=== PATIENT | female | born 1945 | race Caucasian/White ===

== ENCOUNTER 2016-04-30 21:08 | Emergency (ER) | payer OTHER ==
--- NOTE | 2016-04-30 21:17 | UCPHY ---
H & P Patient Type: New Chief Complaint Nursing Narrative: Rash spreading across back and arms. Redness , swelling and itching. HPI/ROS: HPI CHIEF COMPLAINT: Allergic reaction HISTORY OF PRESENT ILLNESS: This patient very pleasant 70-year-old female significant past medical history for hypertension approximately an hour ago she developed some red blotchy area of rash across her left shoulder blade and down her left arm it is pruritic in nature. She noticed it started to spread to her right back and at 1 point she felt as if her throat was getting tight. She denies any trouble swallowing, denies trouble breathing, denies stridor, wheezing or shortness of breath or chest tightness or chest pain. Denies nausea vomiting or diarrhea denies abdominal cramping. She is unsure exactly what precipitated this she does not remember anything new specifically does not remember any contact dermatitis including detergent soaps or ingestion of anything new that causes allergic reaction she has never had anything like this. Patient tells me she was sitting on the couch watching TV when she noticed her left shoulder itching in arm turned red. Does not remember any significant preceding event. She presented to the urgent care by private vehicle with concern that she was having allergic reaction to something given the skin rash itchiness and throat discomfort. Upon arrival here to the urgent care she is resting comfortably her vitals are noted to be hypertensive but she is not having any trouble breathing specifically she has no signs of stridor or airway compromise. She does have a urticaria looking minimal rash across her left shoulder and down her left arm. Due to this I will place an IV in her she will received IV Solu-Medrol, IV Benadryl and IV Pepcid IV fluids gentle hydration. We will closely monitor for progression of allergic reaction. At this time she has no airway compromise or airway involvement. She does tell me that the throat tightness she appreciated earlier has since resolved. Past Medical History: Hypertension Past Surgical History: Denies significant surgical history recent surgery Social History: Denies use of drugs alcohol tobacco products at bedside private vehicle arrival Family History: Noncontributory ROS REVIEW OF SYSTEMS: A comprehensive 10 point review of systems is otherwise negative aside from elements mentioned in the history of present illness. Exam Constitutional appears well, nontoxic in no acute distress triage nursing summary reviewed, vital signs reviewed, awake/alert. Eyes normal conjunctivae and sclera, EOMI, PERRLA. HENT posterior pharynx normal, no evidence of swelling, uvula midline, soft palate normal, no stridor, no upper airway edema visualize, normal inspection, atraumatic, moist mucus membranes, no epistaxis, neck supple/ no meningismus, no raccoon eyes. Respiratory no stridor, no wheezing, no respiratory symptoms, clear to auscultation bilaterally, normal breath sounds, no respiratory distress, no wheezing. Cardiovascular rate normal, regular rhythm, no murmur, no edema, distal pulses normal. Gastrointestinal soft, non-tender, no rebound, no guarding, normal bowel sounds, no distension, no pulsatile mass. Genitourinary no CVA tenderness. Musculoskeletal no midline vertebral tenderness, full range of motion, no calf swelling, no tenderness of extremities, no meningismus, good pulses, neurovascularly intact. Skin pink, warm, & dry, no rash, skin atraumatic. Neurologic awake, alert and oriented x 3, AAOx3, moves all 4 extremities equally, motor intact, sensory intact, CN II-XII intact, normal cerebellar, normal vision, normal speech. Psychiatric normal mood/affect. Heme/Lymph/Immune no lymphadenopathy. Differential Diagnosis: Includes but is not limited to in a particular order, allergic reaction, urticaria, rash, no evidence of anaphylaxis at this time Medical Decision Making: this patient had an IV established received IV Solu- Medrol 125 mg IV Benadryl, IV Pepcid IV fluids will be placed on full monitor for close observation cleaning pulse ox. Will monitor for progression of allergic reaction. She has no airway issue at this time. If patient does well she will most likely go home on Benadryl for next 3 days, prednisone for the next 3 days, I will supply her with an epinephrine pen, and Pepcid for the next 3 days. She understands if at any point she has return of symptoms she needs to seek medical attention in the emergency room. If she has severe signs of allergic reaction should give herself an epinephrine shot. Also recommend she follows up with an dispatcher automobile rental for formal allergy testing. Unclear at this time what caused this urticaria allergic reaction. Re-evaluation: 2224: This patient on re-evaluation is resting comfortably she has no further progression of allergic reaction. She has been here for over an hour and 20 minutes. Her erythema to her back and minimal urticaria has resolved with IV Solu-Medrol Benadryl and Pepcid. She is receiving fluids. It was noted that her blood pressure was high here 190 systolic however this greatly improved to the 150 she is resting comfortably she has no shortness of breath or chest pain she is not having nausea vomiting abdominal cramping, no further problems breathing, no trouble taking a deep breath in, no hypoxia, and does not feel as if her throat is closing. I will allow her to go home however she has been given strict return precautions on if she has any further signs of allergic reaction to return to the emergency room immediately. If his severe or she perceives to be severe call 911. She be given a prescription for Benadryl for next 3 days, prednisone for the next 3 days, Pepcid for next 3 days and an epinephrine prescription she should get this filled tonight. Source: Patient - Medical/Surgical History Other PMH: Hypertension - Family History Significant Family History: No pertinent family hx - Social History Smoking Status: Never smoked Constitutional: Initial Vital Signs Temperature (C) 36.3 C 04/30/16 21:12 Heart Rate 87 04/30/16 21:12 Respiratory Rate 18 04/30/16 21:12 Blood Pressure 198/78 H 04/30/16 21:12 O2 Sat (%) 99 04/30/16 21:12 O2 Delivery Mode Room Air Allergies/Adverse Reactions: Sulfa (Sulfonamide Antibiotics) Allergy (Verified 04/30/16 21:11) Home Medications: Medication Instructions Recorded CRANBERRY 04/30/16 EPINEPHRINE [EPIPEN] 0.3 mg IM ONCE #2 syr 04/30/16 Famotidine [Pepcid 20 MG (*)] 20 mg PO BID #6 tab 04/30/16 Lisinopril 04/30/16 Metoprolol Succinate 50 mg PO 04/30/16 Vit D3/Folic Acid/B2/B6/B12 04/30/16 [Folgard Tablet] diphenhydrAMINE [Benadryl 25 MG 25 mg PO BID #6 tab 04/30/16 (*)] predniSONE 50 mg PO DAILY #5 tablet 04/30/16 Medical Decision Making - Data Points Medications Given: Discontinued Medications Diphenhydramine HCl (Benadryl Injection) 25 mg IVP EDNOW ONE Stop: 04/30/16 21:29 Last Admin: 04/30/16 21:46 Dose: 25 mg Famotidine (Pepcid) 20 mg IVP EDNOW ONE Stop: 04/30/16 21:29 Last Admin: 04/30/16 22:00 Dose: 20 mg Sodium Chloride (Ns) 1,000 mls @ 0 mls/hr IV ONCE ONE PRN Reason: Wide Open Stop: 04/30/16 21:29 Last Admin: 04/30/16 22:00 Dose: 1,000 mls Methylprednisolone Sodium Succinate (Solu-Medrol) 125 mg IVP EDNOW ONE Stop: 04/30/16 21:29 Last Admin: 04/30/16 21:46 Dose: 125 mg Departure - Departure Disposition: Home, Routine, Self-Care Clinical Impression: Allergic reaction Qualifiers: Encounter type: initial encounter Qualified Code(s): T78.40XA - Allergy, unspecified, initial encounter Condition: Good Instructions: Urticaria (ED), Anaphylaxis (ED), Allergies (ED) Additional Instructions: 1. Call 911 if he develops any worsening symptoms this includes trouble breathing, throat swelling or perceived throat swelling, worsening rash or you do not feel well. 2. if you deem herself having severe allergic reaction please take her epinephrine pain. Call 911. 3. please take Benadryl for the next 2 days, prednisone for next 3 days, Pepcid for next 3 days if at any point this gets worse return to the emergency room at [facility] or [facility]. Referrals: NONE *PRIMARY CARE P,. [Primary Care Provider] - As per Instructions Prescriptions: diphenhydrAMINE [Benadryl 25 MG (*)] 25 mg PO BID #6 tab EPINEPHRINE [EPIPEN] 0.3 mg IM ONCE #2 syr Famotidine [Pepcid 20 MG (*)] 20 mg PO BID #6 tab predniSONE 50 mg PO DAILY #5 tablet - PQRS PQRS Measurement: 134: Depression screening and followup, PRIME MD-PHQ2 (12 years and older) Over the last 2 weeks, how often have you been bothered by any of the following problems? NO 130: Documentation of medications. Reviewed all patient medications, doses, route and frequency. 226: Do you smoke? No. 47: 65 and older: Advanced care planning. Patient designates surrogate decision maker as Spouse 51: 18 years old and older with diagnosis of COPD, spirometry performance. Patient has no history of COPD 52: 18 years old and older with COPD and symptoms of COPD or FEV1<60% predicted prescribed a B Agonist. Spirometry not performed; equipment not available.
[2016-04-30] MEDS ORDERED: methylPREDNISolone SOD SUCC 125 MG/2 ML VIAL IVP ONE (21:28)
[2016-04-30] MEDS ORDERED: FAMOTIDINE 20 MG/2 ML SDV IVP ONE (21:28)
[2016-04-30] MEDS ORDERED: NS 1,000 ML IV ONE (21:28)
[2016-04-30 22:17] VITALS: BP 151/87; RESP 20
[2016-04-30 23:01] VITALS: PULSE 81; TEMP 97.7; O2SAT 95
== END 2016-04-30 22:56 | disposition home or self-care (01) ==
LOC: CED 21:08
DX: T78.40XA Allergy, unspecified, initial encounter (principal); I10 Essential (primary) hypertension
CPT/HCPCS: 96361; 96374; 96375; G0463; J1200; 96365-PO; 99204-PO

== ENCOUNTER → 2016-11-07 | Outpatient (CLI) | payer OTHER | LOC: BRMIMAGING 10:21 | PROVIDERS: ATTEND Nurse Practitioner | DX: Z12.31 Encounter for screening mammogram for malignant neoplasm of breast (principal) | CPT/HCPCS: G0202 ==

== ENCOUNTER → 2017-04-07 | Outpatient (CLI) | payer OTHER | LOC: BHCLAF 09:30 | PROVIDERS: ATTEND Internal Medicine Cardiovascular Disease | DX: R01.1 Cardiac murmur, unspecified (principal); I10 Essential (primary) hypertension; E78.2 Mixed hyperlipidemia | CPT/HCPCS: 93005-PO ==

== ENCOUNTER → 2017-04-14 | Outpatient (CLI) | payer OTHER | LOC: BHFA 09:00 | PROVIDERS: ATTEND Internal Medicine | DX: R01.1 Cardiac murmur, unspecified (principal) ==

== ENCOUNTER → 2017-04-22 | Outpatient (CLI) | payer OTHER | LOC: BHFA 08:30 | PROVIDERS: ATTEND Internal Medicine Cardiovascular Disease | DX: R94.39 Abnormal result of other cardiovascular function study (principal) | CPT/HCPCS: 78452; 93017; A9500; J2785 ==

== ENCOUNTER → 2017-09-21 | Outpatient (CLI) | payer OTHER | LOC: CIMAGING 12:06 | PROVIDERS: ATTEND Family Medicine | DX: S93.401A Sprain of unspecified ligament of right ankle, initial encounter (principal); X50.0XXA Overexertion from strenuous movement or load, initial encounter | CPT/HCPCS: 73610-PO ==

== ENCOUNTER → 2017-12-07 | Outpatient (CLI) | payer OTHER | LOC: BRMIMAGING 11:23 | PROVIDERS: ATTEND Nurse Practitioner | DX: Z12.31 Encounter for screening mammogram for malignant neoplasm of breast (principal) ==

== ENCOUNTER → 2018-02-10 | Outpatient (CLI) | payer OTHER | LOC: CIMAGING 14:56 | PROVIDERS: ATTEND Family Medicine | DX: S99.922A Unspecified injury of left foot, initial encounter (principal); M19.072 Primary osteoarthritis, left ankle and foot; M20.12 Hallux valgus (acquired), left foot | CPT/HCPCS: 73630-PO ==

== ENCOUNTER → 2018-04-19 | Outpatient (CLI) | payer OTHER | LOC: BRMIMAGING 08:13 | PROVIDERS: ATTEND Family Medicine | DX: Z13.820 Encounter for screening for osteoporosis (principal); M81.0 Age-related osteoporosis without current pathological fracture; Z78.0 Asymptomatic menopausal state ==

== ENCOUNTER 2018-05-22 08:32 | Emergency (ER) | payer OTHER ==
[2018-05-22 08:48] VITALS: BP 160/75
--- NOTE | 2018-05-22 09:01 | EDPHY ---
H & P Stated Complaint: bp higher than normal , shortness of breath with exertion Time Seen by Provider: 05/22/18 08:55 HPI/ROS: CHIEF COMPLAINT: Blood pressure HISTORY OF PRESENT ILLNESS: Patient is a 72-year-old female whose blood pressures typically around 100 systolic. This last week it is been between 120 and 160. She is concerned because they switched her to a generic form of lisinopril. Her doses have not changed. She denies chest pain but has had some intermittent abdominal fullness. No nausea vomiting or diarrhea. No diaphoresis. She has also noticed some occasional shortness of breath when climbing stairs over the last several months. She attributed this to [facility] and wearing a boot for several months and now getting back in to shape. She is able to exercise otherwise according to her normal routine without feeling short of breath. No leg swelling. No fevers. No cough. No headache. She also states that she has had a lot of stress recently and wonders if this has to do with her blood pressure rising. She also states she has not been sleeping well because of the stress. Severity: Moderate Modifying factors: None REVIEW OF SYSTEMS: Constitutional: denies: chills, fever, recent illness, recent injury EENTM: denies: blurred vision, double vision, nose congestion Respiratory: denies: cough, shortness of breath Cardiac: denies: chest pain, irregular heart rate, lightheadedness, palpitations Gastrointestinal/Abdominal: denies: abdominal pain, diarrhea, nausea, vomiting, blood streaked stools Genitourinary: denies: dysuria, frequency, hematuria, pain Musculoskeletal: denies: joint pain, muscle pain Skin: denies: lesions, rash, jaundice, bruising Neurological: denies: headache, numbness, paresthesia, tingling, dizziness, weakness Hematologic/Lymphatic: denies: blood clots, easy bleeding, easy bruising Immunologic/allergic: denies: HIV/AIDS, transplant 10 systems reviewed and negative except as noted EXAM: GENERAL: Well-appearing, well-nourished and in no acute distress. HEAD: Atraumatic, normocephalic. EYES: Pupils equal round and reactive to light, extraocular movements intact, sclera anicteric, conjunctiva are normal. ENT: TMs normal, nares patent, oropharynx clear without exudates. Moist mucous membranes. NECK: Normal range of motion, supple without lymphadenopathy or JVD. LUNGS: Breath sounds clear to auscultation bilaterally and equal. No wheezes rales or rhonchi. HEART: Regular rate and rhythm without murmurs, rubs or gallops. ABDOMEN: Soft, nontender, normoactive bowel sounds. No guarding, no rebound. No masses appreciated. BACK: No CVA tenderness, no spinal tenderness, step-offs or deformities EXTREMITIES: Normal range of motion, no pitting or edema. No clubbing or cyanosis. NEUROLOGICAL: Cranial nerves II through XII grossly intact. Normal speech, normal gait. 5/5 strength, normal movement in all extremities, normal sensation , normal reflexes PSYCH: Normal mood, normal affect. SKIN: Warm, dry, normal turgor, no visible rashes or lesions. Source: Patient Exam Limitations: No limitations - Personal History Current Tetanus Diphtheria and Acellular Pertussis (TDAP): Yes - Medical/Surgical History Hx Asthma: No Hx Chronic Respiratory Disease: No Hx Diabetes: No Hx Cardiac Disease: No Hx Renal Disease: No Hx Cirrhosis: No Hx Alcoholism: No Other PMH: Hypertension. cholesterol - Family History Significant Family History: No pertinent family hx - Social History Smoking Status: Never smoked Alcohol Use: Sober Constitutional: Initial Vital Signs Temperature (C) 37.1 C 05/22/18 08:41 Heart Rate 85 05/22/18 08:41 Respiratory Rate 16 05/22/18 08:41 Blood Pressure 160/75 H 05/22/18 08:41 O2 Sat (%) 99 05/22/18 08:41 O2 Delivery Mode Room Air Allergies/Adverse Reactions: Sulfa (Sulfonamide Antibiotics) Allergy (Verified 05/22/18 08:47) Home Medications: Medication Instructions Recorded Lisinopril 10 04/30/16 Metoprolol Succinate 25 mg PO 04/30/16 ALENDRONATE SODIUM 05/22/18 Co Q-10 05/22/18 Crestor 05/22/18 Medical Decision Making - Diagnostics EKG Interpretation: An EKG obtained and was read and documented in trace view. Please see trace view for full reading and report. Sinus rhythm, no acute ischemic changes Imaging Results: Imaging Impressions Chest X-Ray 05/22/18 09:13 Impression: 1. Mild cardiomegaly with possible LVH, but without decompensation. 2. Suspect underlying chronic interstitial lung disease. Imaging: Discussed imaging studies w/ call center specialist Radiologist ED Course/Re-evaluation: At triage the patient's blood pressure was 160/80 but has spontaneously decreased to 144/77 in the room. She is currently asymptomatic but has had occasional shortness of breath with exertion and abdominal fullness. We discussed options. We will have her continue to record blood pressure and follow up with her primary care and cmm technician for further management. She and I both suspect that it may primarily be due to stress. She does wish to have a cardiac workup otherwise however because of her shortness of breath and climbing stairs over last several months as well as abdominal fullness. She states however that she is able to exercise on the treadmill each day or go for long walks without developing any shortness of breath. 10:00 a.m. lab work is unremarkable. Patient is asymptomatic. She feels reassured. Her symptoms have been bothering her for several several weeks and are actually not present currently. Single troponin is reassuring. She declines further workup or testing and is eager to go home. Discussed follow- up as well as indications for returning. She will follow up with her cmm technician for blood pressure medication adjustment if necessary. She will continue to record her blood pressures. I encouraged her to do so morning and night. Will also refer to pulmonology for possible interstitial lung disease. The patient states that she does frequently get allergy symptoms but has not had any today. Differential Diagnosis: Partial list of the Differential diagnosis considered include but were not limited to; hypertension, anxiety and although unlikely based on the history and physical exam, I also considered acute coronary disease, CVA, infection. I discussed these differential diagnoses and the plan with the patient as well as the usual and expected course. The patient understands that the diagnosis is provisional and that in medicine we are not always correct and that further workup is often warranted. Usual and customary warnings were given. All of the patient's questions were answered. The patient was instructed to return to the emergency department should the symptoms at all worsen or return, otherwise to followup with the physician as we discussed. - Data Points Laboratory Results: 05/22/18 05/22/18 09:33 09:30 POC Sodium 149 mEq/L H mEq/L (135-145) POC Potassium 3.6 mEq/L mEq/L (3.3-5.0) POC Chloride 106.0 mEq/L mEq/L (97-110) POC Total CO2 23 mEq/L mEq/L (22-31) POC BUN 11 mg/dL mg/dL (7-23) POC Creatinine 0.6 mg/dL mg/dL (0.6-1.0) POC Glucose 114 mg/dL H mg/dL (70-100) POC Calcium 9.9 mg/dL mg/dL (8.5-10.4) POC Troponin I 0.00 ng/mL ng/mL (0.00-0.08) Point of Care Test Results: CBC CBC Collection Date 05/22/18 CBC Collection Time 09:20 WBC 6.91 RBC 4.51 HGB 13.5 HCT 41.4 PLT 185 Neut # 5.51 Neut 79.7 LYMPH # 0.91 LYMPH 13.2 MCV 91.8 Chemistry 05/22/18 05/22/18 09:33 09:30 POC Sodium 149 mEq/L H mEq/L (135-145) POC Potassium 3.6 mEq/L mEq/L (3.3-5.0) POC Chloride 106.0 mEq/L mEq/L (97-110) POC Total CO2 23 mEq/L mEq/L (22-31) POC BUN 11 mg/dL mg/dL (7-23) POC Creatinine 0.6 mg/dL mg/dL (0.6-1.0) POC Glucose 114 mg/dL H mg/dL (70-100) POC Calcium 9.9 mg/dL mg/dL (8.5-10.4) POC Troponin I 0.00 ng/mL ng/mL (0.00-0.08) D-Dimer D-Dimer Collection Date 05/22/18 D-Dimer Collection Time 09:20 D-Dimer (ng/ml) <100 Departure - Departure Disposition: Home, Routine, Self-Care Clinical Impression: Hypertension Qualifiers: Hypertension type: unspecified Qualified Code(s): I10 - Essential (primary) hypertension Condition: Fair Instructions: Hypertension (ED) Referrals: Darwin Santiago DO [Primary Care Provider] - As per Instructions Scotty Ibrahim MD [Medical Doctor] - 2-3 days without fail Migue Ordoñez MD [Medical Doctor] - 5-7 days, call for appt.
--- NOTE | 2018-05-22 09:28 | CPEKG ---
Test Reason : OPEN Blood Pressure : / mmHG Vent. Rate : 075 BPM Atrial Rate : 074 BPM P-R Int : 141 ms QRS Dur : 088 ms QT Int : 386 ms P-R-T Axes : 074 -08 046 degrees QTc Int : 432 ms Sinus rhythm Probable left atrial enlargement Confirmed by Raymundo Alvares ([id number]) on 05/22/2018 9:27:52 AM Referred By: Raymundo Alvares Confirmed By:Raymundo Alvares
== END 2018-05-22 10:25 | disposition home or self-care (01) ==
LOC: CED 08:32
DX: I10 Essential (primary) hypertension (principal); Z88.2 Allergy status to sulfonamides
CPT/HCPCS: 71046-PO; 80048-ER; 84484-ER